=== PATIENT | male | born 1955 | race Caucasian/White ===

== ENCOUNTER 2016-12-30 22:06 | Emergency (ER) | payer OTHER ==
[2016-12-30 22:47] LABS: BASOPHILS 0.2 %; BASOPHILS ABSOLUTE 0.02 10/3/uL (0.0-0.16); EOSINOPHILS 0.6 %; EOSINOPHILS ABSOLUTE 0.07 10/3/uL (0.0-0.53); HEMATOCRIT 43.2 % (40.0-51.0); HEMOGLOBIN 14.9 g/dL (13.6-17.8); IMMATURE GRANULOCYTES 0.1 %; IMMATURE GRANULOCYTES ABSOLUTE 0.01 10/3/uL (0.0-0.11); LYMPHOCYTES 3.1 %; LYMPHOCYTES ABSOLUTE 0.35 10/3/uL (0.67-4.30); MEAN CORPUS HGB CONC 34.5 g/dL (32.0-36.0); MEAN CORPUSCULAR HEMOGLOB 30.4 pg (26.0-34.0); MEAN CORPUSCULAR VOLUME 88.2 fL (80-100); MEAN PLATELET VOLUME 10.8 fL (9.2-13.0); MONOCYTES 3.3 %; MONOCYTES ABSOLUTE 0.38 10/3/uL (0.21-1.20); NEUTROPHILS 92.7 %; NEUTROPHILS ABSOLUTE 10.55 10/3/uL (2.02-8.40); PLATELET COUNT 166 10/3/uL (150-400); RBC DISTRIBUTION WIDTH 12.3 % (12.0-16.0); WHITE BLOOD CELLS 11.4 10/3/uL (4.5-10.5)
[2016-12-30 22:48] LABS: MANUAL DIFF NO %
[2016-12-30 22:56] LABS: ASCORBIC ACID (UR NOT ORDER) NEG (NEG); BILIRUBIN, URINE NEGATIVE (NEG); ER URINALYSIS TAT 0 Hrs 11 Mins; KETONE, URINE TRACE MG/DL (NEG); LEUKOCYTE ESTERASE(NOT OR SMALL (NEG); NITRITE (URINE) NEG (NEG); WBC (NOT ORDERED) (RFLEX) 12 (0-5)
[2016-12-30 23:02] LABS: A/G RATIO 1.1 (0.7-1.9); ALBUMIN 3.7 G/DL (3.5-5.0); ALKALINE PHOSPHATASE 37 U/L (45-117); BUN (BLOOD UREA NITROGEN) 19 MG/DL (6-23); CALCIUM, SERUM 8.1 MG/DL (8.5-10.4); CHLORIDE, SERUM 105 MMOL/L (96-112); CO2 (CARBON DIOXIDE) 24 MMOL/L (24-34); CREATININE 1.19 MG/DL (0.70-1.30); GFR AFRICAN AMERICAN 75 ML/MIN (>=60); GFR NON AFRICAN AMERICAN 65 ML/MIN (>=60); GLOBULIN 3.3 G/DL (2.5-4.1); GLUCOSE, SERUM 123 MG/DL (60-99); POTASSIUM, SERUM 3.5 MMOL/L (3.5-5.3); SGOT(AST) 17 U/L (5-40); SGPT(ALT) 27 U/L (5-65); SODIUM, SERUM 139 MMOL/L (135-148); TOTAL BILIRUBIN 0.9 MG/DL (0-1.2)
[2016-12-31] MEDS ORDERED: KLONO5 PO (17:59)
[2016-12-31] MEDS ORDERED: TUMSROLL PO (18:00)
[2016-12-31] MEDS ORDERED: PRILO PO (18:00)
[2016-12-31] MEDS ORDERED: CELEXA40 MG PO (18:00)
[2016-12-31] MEDS ORDERED: KLONO2 PO (18:00)
[2016-12-31] MEDS ORDERED: OMNICEF300 PO (18:01)
[2016-12-31] MEDS ORDERED: ACET500CAP PO (18:02)
[2016-12-31] MEDS ORDERED: LEVAQUIN5T PO (18:02)
[2016-12-31] MEDS ORDERED: ADVIL PO (18:03)
[2016-12-31] MEDS ORDERED: EXCEDRIN EXTRA1 EACH PO (18:04)
== END 2016-12-31 03:14 | disposition home or self-care (01) ==
LOC: ER 22:06
PROVIDERS: Emergency Medicine
DX: R50.9 Fever, unspecified (principal); E11.9 Type 2 diabetes mellitus without complications
CPT/HCPCS: 71020; 80053; 81001; 85025; 87040; 87077; 87086; 87150; 87186; 99284

== ENCOUNTER 2016-12-31 15:55 | Inpatient (IN) | payer OTHER ==
--- NOTE | ~2016-12-31 | DS ---
Discharge Summary [facility] [address] [place]. [address] NAME: JOHN PAUL ESTRADA : 51 STATUS : DIS IN PAT#: [id number] AGE: 61 ADM/REG DATE : 12/31/16 MR#: [id number] REPORT SERV DATE: 01/11/17 DICTATED BY: LÓPEZ LUNA DATE: 01/11/17 REPORT STATUS : Draft TRANSCRIBED BY: RAMA DATE: 01/11/17 Data Collection from hospitalization DISCHARGE DIAGNOSES: 1. Bacteremia after prostate biopsy. 2. Elevated PSA. 3. Urinary retention. 4. Diet-controlled type 2 diabetes. 5. Gastroesophageal reflux disease. 6. Anxiety with panic attacks. 7. Insomnia. 8. Sleep apnea. CONSULTATIONS: Eugenio Romero M.D. PROCEDURES PERFORMED: None. MEDICATIONS: Tylenol caplet 500 mg daily as needed, Excedrin extra-strength one tablet daily as needed, Tums 1000 mg in the evening and at bedtime as needed, Omnicef 300 mg twice a day for 10 days, Celexa 40 mg at bedtime, Klonopin 0.25 mg daily as needed and 2 mg at bedtime, Advil 200 mg daily as needed, Levaquin 500 mg daily for 10 days, and Prilosec 20 mg at bedtime. CONDITION AT DISCHARGE: Stable. DISPOSITION: The patient was discharged home on a diabetic diet with activities as instructed. He would follow up with me one week following discharge. HOSPITAL COURSE: This is a 61-year-old man who had undergone a prostate biopsy for elevated PSA of just over 5 on Wednesday prior to this admission. He had a fever of 100.4 at home on 12/30/2016. He presented to the emergency room at [facility]. At that time, blood and urine cultures were obtained. His white blood cell count was within normal limits. His vital signs were good. He was then sent home on an extension of this Levaquin and Omnicef. The following day, one of his blood cultures came back positive, so the emergency room called him and told him to come back to the hospital for admission. He was started on IV cefepime for broad-spectrum coverage. He was admitted to the hospital at this time for further evaluation and treatment. Upon admission, overnight his maximum temperature was 100.7. He was afebrile the following morning and said he was feeling better. White blood cell count was normal. He continued to deny any difficulty passing his urine or any blood in his urine or any difficulty or pain passing his bowels or any perineal pain or discomfort. Broad-spectrum antibiotics were continued. DVT prophylaxis was going to be prescribed. On 01/02/2017, antibiotics were continued. White blood cell count was 10.7. Over the next couple of days, he said he begin to feel better. He had no fevers or chills. He was seen in consultation by Dr. Eugenio Romero for evaluation and treatment of gram-negative sepsis. He had been found to have E. coli that was ESBL on cultures. He had been started on Septra and meropenem. Since beginning these, the rigors had stopped and he generally felt better at this time. He was Discharge Summary [address] [place]. [address] NAME: JOHN PAUL ESTRADA : 51 STATUS : DIS IN PAT#: [id number] AGE: 61 ADM/REG DATE : 12/31/16 MR#: [id number] REPORT SERV DATE: 01/11/17 DICTATED BY: LÓPEZ LUNA DATE: 01/11/17 REPORT STATUS : Draft TRANSCRIBED BY: MODL DATE: 01/11/17 not having nausea, vomiting, or headache. He could urinate without difficulty. White count had decreased to 6.1. Creatinine level was 1.01. He was felt to have a genitourinary infection stemming from prostate biopsy and now with associated sepsis due to ESBL Escherichia coli. He was going to be changed to amikacin to give a more narrow spectrum coverage and treat him the rest of this today and the following day with that. He could possibly be sent home on oral Septra to complete his course. Discharge planning was performed. On 01/04/2017, he seemed to be feeling better. Followup blood cultures were negative. His urine was clear. He was afebrile. Discharge instructions were given. Due to his improved and stable condition, he was discharged home with the above-stated instructions. Information collected by: Torrie Last I submit the above information as my discharge summary. LORIN/RAMA López Luna M.D. / [id number] CC: America Meyer M.D. Mark Anderson, M.D.
--- NOTE | ~2016-12-31 | CN ---
Consultation Report [facility] [address] [place]. [address] NAME: JOHN PAUL ESTRADA : 51 STATUS : ADM IN [facility]#: [id number] AGE: 61 ADM/REG DATE : 12/31/16 MR#: [id number] REPORT SERV DATE: 01/03/17 DICTATED BY: LUIS GAGE DATE: 01/03/17 REPORT STATUS : Draft TRANSCRIBED BY: MODL DATE: 01/03/17 INFECTIOUS DISEASE CONSULT DATE OF CONSULTATION: REASON FOR EVALUATION: Evaluation and treatment of gram-negative sepsis. HISTORY OF PRESENT ILLNESS: The patient is a 61-year-old male, who has a history of gastroesophageal reflux disease, obstructive sleep apnea, and diabetes. He had a recently elevated PSA and underwent a transrectal prostate biopsy on 12/29/[address] Walker. The next day, he developed fever and then violent shaking chills. He came here to the emergency room and was evaluated. He appeared to be fairly nontoxic when he arrived. He had a white count of 11.4 and urine with 75 white cells. He had cultures taken and was sent out on Levaquin and Omnicef but the next day, he was called back with reports that his blood is growing gram-negative rods. He came in, urine and blood were cultured, and he was started on cefepime, but the culture came back positive for an E coli that was ESBL. Has been started yesterday on , meropenem, and since has happened, the rigors have stopped and he generally feels better today. He is not having nausea or vomiting. No headache. He is able to urinate without difficulty. PAST MEDICAL HISTORY: Otherwise unremarkable. MEDICATIONS: As mentioned above. ALLERGIES: HE HAS NO KNOWN ANTIMICROBIAL ALLERGIES. SOCIAL HISTORY: He is . 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 Nonsmoker. No history of alcohol or substance abuse. FAMILY HISTORY: Noncontributory. PHYSICAL EXAMINATION: GENERAL: A nontoxic adult, male, in no acute distress. He is alert and oriented x3. VITAL SIGNS: His temperature at present, 98.7 with a pulse of 59, respirations 14, blood pressure 120/60. His weight is 90 kg. HEENT: Sclerae clear. No oropharyngeal lesion. NECK: Supple. LUNGS: Clear. HEART: Regular rate and rhythm. ABDOMEN: Soft, nontender. Positive bowel sounds. EXTREMITIES: Without clubbing, cyanosis, or edema. No swollen, red, or hot joints. No skin lesions or rashes noted. Consultation Report [place] [address] [place]. [address] NAME: JOHN PAUL ESTRADA : 51 STATUS : ADM IN PAT#: [id number] AGE: 61 ADM/REG DATE : 12/31/16 MR#: [id number] REPORT SERV DATE: 01/03/17 DICTATED BY: LUIS GAGE DATE: 01/03/17 REPORT STATUS : Draft TRANSCRIBED BY: RAMA DATE: 01/03/17 LABORATORY DATA: His white count 11.4 when he came in and is 6.1 today, hematocrit 37.9, platelets 128, unremarkable differential, no white count. His BUN and creatinine 13 and 1.01. IMPRESSION: Genitourinary infection stemming from prostate biopsy and now with associated sepsis due to ESBL Escherichia coli. RECOMMENDATIONS: We will change to amikacin to give a more narrow spectrum coverage and treat today and tomorrow with that, and can possibly send him home tomorrow on oral Septra to complete his course. Finally, I will follow the patient with you. I appreciate very much your consulting on this patient. ROSANGELA Luis Gage M.D. / [id number] CC: America Meyer M.D.
--- NOTE | ~2016-12-31 | HP ---
History And Physical [place] [id number] [facility] [place]. [address] NAME: JOHN PAUL ESTRADA : 51 STATUS : ADM IN [facility]#: [id number] AGE: 61 ADM/REG DATE : 12/31/16 MR#: [id number] REPORT SERV DATE: 01/01/17 DICTATED BY: HUAN WHITT DATE: 01/01/17 REPORT STATUS : Draft TRANSCRIBED BY: RAMA DATE: 01/01/17 DATE OF ADMISSION: 12/31/2016 I am seeing this patient for Dr. Walker in his absence. ADMITTING DIAGNOSIS: Bacteremia and fever after prostate biopsy. CHIEF COMPLAINT: "They told me there is gross bacteria in my blood and I have a fever." HISTORY: This is a 61-year-old gentleman who had a prostate biopsy for an elevated PSA of just over [address] Walker in the office. He ran a fever of 100.4 at home on 12/30/2016 and presented to the emergency room at [facility]. At that time, he had blood and urine culture sent. His white blood cell count was within normal limits, and his vital signs were good. He was then sent home on an extension of his Levaquin and Omnicef. The next afternoon, one of his blood cultures came back positive, so the emergency room called him and told him to come back to the hospital for admission. As Dr. Walker was out of town, I was contacted on the evening of 12/31/2016 for admission orders. I elected to place him on IV cefepime for broad-spectrum coverage. Overnight, his maximum temperature was 100.7, but he is afebrile this morning. He states he is feeling better today. His white blood cell count is still normal. He continues to deny any difficulty passing his urine, any blood in his urine, any difficulty or pain passing his bowels or any perineal pain or discomfort. He denies any abdominal pain, nausea, or vomiting. He is tolerating his diabetic diet. PAST MEDICAL HISTORY: Gastroesophageal reflux disease; anxiety with panic attacks; elevated PSA; occasional headaches; insomnia; sleep apnea, requiring CPAP; and diet-controlled type 2 diabetes. PAST SURGICAL HISTORY: Left foot surgery and prostate biopsy in the office. ALLERGIES: NO KNOWN DRUG ALLERGIES. MEDICATIONS AT HOME: Tylenol as needed, Excedrin as needed, and Tums as needed. He was on Omnicef and Levaquin on admission. Celexa, Klonopin 0.5 mg as needed and 2 mg at bedtime, Advil as needed, and Prilosec 20 mg at bedtime. SOCIAL HISTORY: He is . Denies any alcohol or tobacco use. REVIEW OF SYSTEMS: GENERAL: He was having fevers. NEUROLOGIC: Denies symptoms. LUNGS: Denies symptoms. HEART: Denies symptoms. GI: As above. : As above. MUSCULOSKELETAL: Denies symptoms. History And Physical [address] [place]. [address] NAME: JOHN PAUL ESTRADA : 51 STATUS : ADM IN [facility]#: [id number] AGE: 61 ADM/REG DATE : 12/31/16 MR#: [id number] REPORT SERV DATE: 01/01/17 DICTATED BY: HUAN WHITT DATE: 01/01/17 REPORT STATUS : Draft TRANSCRIBED BY: RAMA DATE: 01/01/17 PHYSICAL EXAMINATION: VITAL SIGNS: Maximum temperature overnight was 100.7, temperature this morning is 98.2; blood pressure 107/57; and pulse of 66. He has had 1780 mL in and 1000 mL out. GENERAL: He is in no acute distress. NEUROLOGIC: Alert and oriented x3. PSYCHIATRIC: Appropriate. HEENT: Facial features symmetric. Eyes, sclerae are anicteric. NECK: Supple. LUNGS: Equal inspiratory effort bilaterally. CARDIOVASCULAR: No lower extremity edema noted. ABDOMEN: Soft, nontender, and nondistended. Bladder is not palpable. : Reveals normal circumcised phallus. Bilateral descended testes without masses, which are nontender. Epididymides are also nontender. Prostate exam reveals normal sphincter tone. His prostate is nontender and it is not boggy, and there is no fluctuance. LABORATORY STUDIES: Today, white count of 10.7, hemoglobin 13.6, hematocrit 38.8, and platelets 125. His lactate yesterday was 1.0. Chemistries: Sodium 141, potassium 3.4, chloride 108, CO2 of 23, BUN of 15, creatinine of 1.16, and glucose of 146. Urinalysis on admission showed moderate leukocyte esterase, negative for nitrites, greater than 108 red blood cells, greater than 75 white blood cells, and no bacteria. PT is 16.3, INR of 1.3, and PTT of 35.5. Blood culture sent on 12/30/2016 is growing gram-negative bacilli. IMPRESSION: Bacteremia, status post prostate biopsy with fever. PLAN: 1. Continue broad-spectrum antibiotics. 2. Await blood culture results so the oral antibiotics can be prescribed. 3. We will prescribe DVT prophylaxis. 4. Dr. Silva is covering this weekend. SHERRY/RAMA Huan Whitt M.D. / [id number] CC: America Meyer M.D.
[2016-12-31 16:21] LABS: BASOPHILS 0.1 %; BASOPHILS ABSOLUTE 0.01 10/3/uL (0.0-0.16); EOSINOPHILS 0.6 %; EOSINOPHILS ABSOLUTE 0.06 10/3/uL (0.0-0.53); HEMATOCRIT 41.3 % (40.0-51.0); HEMOGLOBIN 14.5 g/dL (13.6-17.8); IMMATURE GRANULOCYTES 0.2 %; IMMATURE GRANULOCYTES ABSOLUTE 0.02 10/3/uL (0.0-0.11); LYMPHOCYTES 4.5 %; LYMPHOCYTES ABSOLUTE 0.48 10/3/uL (0.67-4.30); MEAN CORPUS HGB CONC 35.1 g/dL (32.0-36.0); MEAN CORPUSCULAR HEMOGLOB 31.6 pg (26.0-34.0); MEAN PLATELET VOLUME 11.1 fL (9.2-13.0); MONOCYTES 3.7 %; MONOCYTES ABSOLUTE 0.39 10/3/uL (0.21-1.20); NEUTROPHILS 90.9 %; NEUTROPHILS ABSOLUTE 9.59 10/3/uL (2.02-8.40); PLATELET COUNT 131 10/3/uL (150-400); RBC DISTRIBUTION WIDTH 12.3 % (12.0-16.0); RED CELL COUNT 4.59 10/6/uL (4.7-6.1); WHITE BLOOD CELLS 10.6 10/3/uL (4.5-10.5)
[2016-12-31 16:22] LABS: MANUAL DIFF NO %
[2016-12-31 16:25] LABS: ASCORBIC ACID (UR NOT ORDER) NEG (NEG); BILIRUBIN, URINE NEGATIVE (NEG); ER URINALYSIS TAT 0 Hrs 10 Mins; KETONE, URINE TRACE MG/DL (NEG); LEUKOCYTE ESTERASE(NOT OR MOD (NEG); NITRITE (URINE) NEG (NEG); WBC (NOT ORDERED) (RFLEX) 75 (0-5)
[2016-12-31 16:30] LABS: INTERNATIONAL NORMAL RATI 1.3 UNITS (-); PARTIAL THROMBO TIME 35.5 SEC (22.5-37.2); PROTIME (NOT ORD) 16.3 SEC (12.0-14.5)
[2016-12-31 16:36] LABS: A/G RATIO 1.1 (0.7-1.9); ALBUMIN 3.6 G/DL (3.5-5.0); ALKALINE PHOSPHATASE 39 U/L (45-117); BUN (BLOOD UREA NITROGEN) 17 MG/DL (6-23); CALCIUM, SERUM 8.2 MG/DL (8.5-10.4); CHLORIDE, SERUM 104 MMOL/L (96-112); CO2 (CARBON DIOXIDE) 26 MMOL/L (24-34); CREATININE 1.17 MG/DL (0.70-1.30); GFR AFRICAN AMERICAN 76 ML/MIN (>=60); GFR NON AFRICAN AMERICAN 66 ML/MIN (>=60); GLOBULIN 3.4 G/DL (2.5-4.1); GLUCOSE, SERUM 132 MG/DL (60-99); POTASSIUM, SERUM 3.7 MMOL/L (3.5-5.3); SGOT(AST) 20 U/L (5-40); SGPT(ALT) 26 U/L (5-65); SODIUM, SERUM 139 MMOL/L (135-148); TOTAL BILIRUBIN 1.2 MG/DL (0-1.2)
[2016-12-31] MEDS ORDERED: KLONO5 PO (17:59)
[2016-12-31] MEDS ORDERED: PRILO PO (18:00)
[2016-12-31] MEDS ORDERED: TUMSROLL PO (18:00)
[2016-12-31] MEDS ORDERED: CELEXA40 MG PO (18:00)
[2016-12-31] MEDS ORDERED: KLONO2 PO (18:00)
[2016-12-31] MEDS ORDERED: OMNICEF300 PO (18:01)
[2016-12-31] MEDS ORDERED: LEVAQUIN5T PO (18:02)
[2016-12-31] MEDS ORDERED: ACET500CAP PO (18:02)
[2016-12-31] MEDS ORDERED: ADVIL PO (18:03)
[2016-12-31] MEDS ORDERED: EXCEDRIN EXTRA1 EACH PO (18:04)
[2017-01-01 06:04] LABS: BASOPHILS 0.2 %; BASOPHILS ABSOLUTE 0.02 10/3/uL (0.0-0.16); EOSINOPHILS 0.4 %; EOSINOPHILS ABSOLUTE 0.04 10/3/uL (0.0-0.53); HEMATOCRIT 38.8 % (40.0-51.0); HEMOGLOBIN 13.6 g/dL (13.6-17.8); IMMATURE GRANULOCYTES 0.1 %; IMMATURE GRANULOCYTES ABSOLUTE 0.01 10/3/uL (0.0-0.11); LYMPHOCYTES 7.5 %; MEAN CORPUS HGB CONC 35.1 g/dL (32.0-36.0); MEAN CORPUSCULAR HEMOGLOB 31.8 pg (26.0-34.0); MEAN CORPUSCULAR VOLUME 90.7 fL (80-100); MEAN PLATELET VOLUME 11.6 fL (9.2-13.0); MONOCYTES 6.2 %; MONOCYTES ABSOLUTE 0.66 10/3/uL (0.21-1.20); NEUTROPHILS 85.6 %; PLATELET COUNT 125 10/3/uL (150-400); RBC DISTRIBUTION WIDTH 12.5 % (12.0-16.0); RED CELL COUNT 4.28 10/6/uL (4.7-6.1); WHITE BLOOD CELLS 10.7 10/3/uL (4.5-10.5)
[2017-01-01 06:13] LABS: MANUAL DIFF NO %
[2017-01-01 06:40] LABS: BUN (BLOOD UREA NITROGEN) 15 MG/DL (6-23); CALCIUM, SERUM 7.7 MG/DL (8.5-10.4); CHLORIDE, SERUM 108 MMOL/L (96-112); CO2 (CARBON DIOXIDE) 23 MMOL/L (24-34); CREATININE 1.16 MG/DL (0.70-1.30); GFR AFRICAN AMERICAN 77 ML/MIN (>=60); GFR NON AFRICAN AMERICAN 67 ML/MIN (>=60); GLUCOSE, SERUM 146 MG/DL (60-99); POTASSIUM, SERUM 3.4 MMOL/L (3.5-5.3); SODIUM, SERUM 141 MMOL/L (135-148)
[2017-01-02 07:30] LABS: BASOPHILS 0.2 %; BASOPHILS ABSOLUTE 0.02 10/3/uL (0.0-0.16); EOSINOPHILS 0.7 %; EOSINOPHILS ABSOLUTE 0.06 10/3/uL (0.0-0.53); HEMATOCRIT 37.7 % (40.0-51.0); HEMOGLOBIN 12.9 g/dL (13.6-17.8); IMMATURE GRANULOCYTES 0.1 %; IMMATURE GRANULOCYTES ABSOLUTE 0.01 10/3/uL (0.0-0.11); MEAN CORPUS HGB CONC 34.2 g/dL (32.0-36.0); MEAN CORPUSCULAR VOLUME 90.6 fL (80-100); MEAN PLATELET VOLUME 11.5 fL (9.2-13.0); MONOCYTES 8.5 %; MONOCYTES ABSOLUTE 0.68 10/3/uL (0.21-1.20); NEUTROPHILS 80.5 %; NEUTROPHILS ABSOLUTE 6.44 10/3/uL (2.02-8.40); PLATELET COUNT 105 10/3/uL (150-400); RBC DISTRIBUTION WIDTH 12.7 % (12.0-16.0); RED CELL COUNT 4.16 10/6/uL (4.7-6.1)
[2017-01-02 07:32] LABS: MANUAL DIFF NO %
[2017-01-02 07:41] LABS: BUN (BLOOD UREA NITROGEN) 13 MG/DL (6-23); CALCIUM, SERUM 7.5 MG/DL (8.5-10.4); CHLORIDE, SERUM 108 MMOL/L (96-112); CO2 (CARBON DIOXIDE) 22 MMOL/L (24-34); CREATININE 1.01 MG/DL (0.70-1.30); GFR AFRICAN AMERICAN 91 ML/MIN (>=60); GFR NON AFRICAN AMERICAN 79 ML/MIN (>=60); GLUCOSE, SERUM 113 MG/DL (60-99); POTASSIUM, SERUM 3.3 MMOL/L (3.5-5.3); SODIUM, SERUM 140 MMOL/L (135-148)
[2017-01-03 12:56] LABS: BASOPHILS 0.2 %; BASOPHILS ABSOLUTE 0.01 10/3/uL (0.0-0.16); EOSINOPHILS 2.9 %; EOSINOPHILS ABSOLUTE 0.18 10/3/uL (0.0-0.53); HEMATOCRIT 37.9 % (40.0-51.0); IMMATURE GRANULOCYTES 0.3 %; IMMATURE GRANULOCYTES ABSOLUTE 0.02 10/3/uL (0.0-0.11); LYMPHOCYTES 15.2 %; LYMPHOCYTES ABSOLUTE 0.93 10/3/uL (0.67-4.30); MEAN CORPUS HGB CONC 34.3 g/dL (32.0-36.0); MEAN CORPUSCULAR HEMOGLOB 31.1 pg (26.0-34.0); MEAN CORPUSCULAR VOLUME 90.7 fL (80-100); MEAN PLATELET VOLUME 11.2 fL (9.2-13.0); MONOCYTES 13.7 %; MONOCYTES ABSOLUTE 0.84 10/3/uL (0.21-1.20); NEUTROPHILS 67.7 %; NEUTROPHILS ABSOLUTE 4.13 10/3/uL (2.02-8.40); PLATELET COUNT 128 10/3/uL (150-400); RBC DISTRIBUTION WIDTH 12.8 % (12.0-16.0); RED CELL COUNT 4.18 10/6/uL (4.7-6.1); WHITE BLOOD CELLS 6.1 10/3/uL (4.5-10.5)
[2017-01-03 12:57] LABS: MANUAL DIFF NO %
== END 2017-01-04 17:54 | disposition home or self-care (01) | DRG 862 ==
LOC: ER 15:55 → 4SO 19:52
PROVIDERS: Emergency Medicine; Urology
DX: T81.4XXA Infection following a procedure, initial encounter (principal); A41.51 Sepsis due to Escherichia coli [E. coli]; K21.9 Gastro-esophageal reflux disease without esophagitis; F41.0 Panic disorder [episodic paroxysmal anxiety]; Y84.8 Other medical procedures as the cause of abnormal reaction of the patient, or of later complication, without mention of misadventure at the time of the procedure; G47.00 Insomnia, unspecified; G47.33 Obstructive sleep apnea (adult) (pediatric); E11.9 Type 2 diabetes mellitus without complications; R33.8 Other retention of urine; R97.20 Elevated prostate specific antigen [PSA]
CPT/HCPCS: 71020; 80048; 80053; 81001; 82962; 83605; 83690; 84132; 85025; 85610; 85730; 87040; 87077; 87086; 87186; 93005; 99285; A9270-GY; J0278; J0692; J2185

== ENCOUNTER 2017-01-24 09:13 | Inpatient (IN) | payer OTHER ==
--- NOTE | ~2017-01-24 | DS ---
Discharge Summary [facility] [address] [place]. [address] NAME: JOHN PAUL ESTRADA : 51 STATUS : DIS IN PAT#: [id number] AGE: 61 ADM/REG DATE : 01/24/17 MR#: [id number] REPORT SERV DATE: 03/01/17 DICTATED BY: IVY FLORES II DATE: 02/28/17 REPORT STATUS : Draft TRANSCRIBED BY: MODL DATE: 02/28/17 ADMISSION DATE: 01/24/2017 DISCHARGE DATE: 01/28/2017 DISCHARGE DIAGNOSES: 1. Acute cystitis, with also probable prostatitis, with history of extended-spectrum beta- lactamases Escherichia coli. 2. Sepsis. 3. Diabetes mellitus type 2. 4. Obstructive sleep apnea. CONSULTS: Dr. Walker with Urology and Dr. Alberto with Infectious Disease. BRIEF HISTORY OF PRESENT ILLNESS: The patient is a 61-year-old male, with the above history, who presented to [facility], due to dysuria, frequency, and fever. For detailed history and physical examination, please see Dr. Arrington's note from 01/24/2017. HOSPITAL COURSE: On admission, the patient had a white blood cell count of 16.5. A urinalysis showed 34 white cells, 28 red cells, small leuk esterase, and moderate blood. Given the patient's history of ESBL E. coli, he was started on meropenem. Urine cultures on this admission are actually unremarkable. A CT scan was done, due to concern for possible prostatic abscess. This showed diffuse thickening at the wall of the bladder with inflammation in the adjacent mesentery consistent with cystitis. The prostate gland was also enlarged with in-margin contrast enhancement. Dr. Walker was consulted and evaluated the patient, and thought that CT scan findings were concerning for prostatitis as well. Dr. Alberto recommended ertapenem IV for 10 days. The patient's white count actually came down. He is doing well. Dysuria improved and was discharged home with home health on IV antibiotics. He will follow with Dr. Walker in two weeks. DISCHARGE MEDICATIONS: 1. Tylenol 500 mg p.o. daily p.r.n. 2. Excedrin p.r.n. 3. Tums p.r.n. 4. Celexa 40 mg p.o. at bedtime. 5. Klonopin 0.25 mg p.o. daily p.r.n. 6. Klonopin 2 mg p.o. at bedtime p.r.n. 7. Ibuprofen 200 mg p.o. daily p.r.n. 8. Prilosec 20 mg p.o. daily. 9. Flomax 0.4 mg p.o. at bedtime. 10.Ertapenem 1 g IV daily for 10 days. DISCHARGE INSTRUCTIONS: The patient will follow up with Dr. Walker in two to three weeks. Discharge Summary [address] [address] NAME: JOHN PAUL ESTRADA : 51 STATUS : DIS IN PAT#: [id number] AGE: 61 ADM/REG DATE : 01/24/17 MR#: [id number] REPORT SERV DATE: 03/01/17 DICTATED BY: IVY FLORES II DATE: 02/28/17 REPORT STATUS : Draft TRANSCRIBED BY: RAMA DATE: 02/28/17 NITA/RAMA Ivy Flores II, MD / [id number] CC: MD Javi Drummond II, M.D.
--- NOTE | ~2017-01-24 | HP ---
History And Physical [place] [id number] [facility] [place]. [address] NAME: JOHN PAUL ESTRADA : 51 STATUS : ADM IN PAT#: [id number] AGE: 61 ADM/REG DATE : 01/24/17 MR#: [id number] REPORT SERV DATE: 01/24/17 DICTATED BY: DANE ARRINGTON DATE: 01/24/17 REPORT STATUS : Draft TRANSCRIBED BY: MODL DATE: 01/24/17 DATE OF ADMISSION: 01/24/2017 CHIEF COMPLAINT: Burning with urination as well as frequency and fever. HISTORY OF PRESENT ILLNESS: This is a 61-year-old male, discharge from the hospital last month for bacteremia with ESBL E. coli. Perviously, he was discharged on 01/04/2017. During that hospitalization, he was seen by Dr. Eugenio Romero. He completed antibiotics at home. He had this bacteremia after a prostate biopsy. He said he was told to come back to the ER if he felt bad again. Yesterday, he felt okay, then in the evening he noted that he was having pain with urination and going to the bathroom a lot. This morning, he had a temperature of 101. Denies any nausea, vomiting, chest pain, shortness of breath. REVIEW OF SYSTEMS: Full review of systems is obtained and is negative with the exception of above HPI. PAST MEDICAL HISTORY: 1. GERD, anxiety with panic attacks, history of elevated PSA with recent prostate biopsy. 2. History of MK requiring CPAP and diet-controlled diabetes. ALLERGIES: NO KNOWN DRUG ALLERGIES. SOCIAL HISTORY: He is . Denies alcohol abuse or tobacco use. HOME MEDICATIONS: Tylenol p.r.n., Excedrin p.r.n., Tums p.r.n., Celexa 40 mg at bedtime, Klonopin 0.25 daily p.r.n., Klonopin 2 mg at bedtime, Advil p.r.n., Prilosec 20 at bedtime, and Flomax 0.4 at bedtime. FAMILY HISTORY: Heart disease. PHYSICAL EXAMINATION: VITAL SIGNS: Temperature 99.3, pulse 87, respiratory rate 16, blood pressure 133/63, saturating 98% on room air. GENERAL: This is a well-developed, well-nourished male, who appears stated. He is in no acute distress. HEENT: Extraocular muscles are intact. Sclerae anicteric. Mucous membranes are moist. NECK: Supple. LUNGS: Clear to auscultation bilaterally with normal respiratory effort. Symmetric expansion. No wheezes, rales, or rhonchi. CARDIAC: Regular rate and rhythm with no appreciable murmur. ABDOMEN: Soft, nontender, nondistended. No palpable masses. EXTREMITIES: Lower extremities are warm and well perfused with no edema. NEURO: Cranial nerves II through XII are grossly intact. Face is symmetric. Tongue is midline. LABORATORY DATA: Done in the emergency room. CBC with white blood cell count 16.5, History And Physical [address] [address] NAME: JOHN PAUL ESTRADA : 51 STATUS : ADM IN [facility]#: [id number] AGE: 61 ADM/REG DATE : 01/24/17 MR#: [id number] REPORT SERV DATE: 01/24/17 DICTATED BY: DANE ARRINGTON DATE: 01/24/17 REPORT STATUS : Draft TRANSCRIBED BY: RAMA DATE: 01/24/17 hemoglobin 14.6, platelet count 175. BMP grossly unremarkable. ASSESSMENT AND PLAN: 61-year-old male with recent extended spectrum beta-lactamases Escherichia coli bacteremia after prostate biopsy presenting with urinary tract infection and early sepsis. 1. Urinary tract infection with sepsis. The patient will be treated with meropenem given previous culture results. We will follow cultures including blood in urine and adjust antibiotics as appropriate. In the interim, he will be admitted to the hospital and monitored. 2. Dysuria, we will start him on Pyridium. 3. Obstructive sleep apnea, continue home CPAP regimen. 4. History of anxiety and panic attacks, continue home regimen. 5. Diet-controlled diabetes. We will have him here monitored on sliding scale insulin given infection. 6. Deep venous thrombosis prophylaxis will be with enoxaparin. 7. Code status is full. DNK/MODL Dane Arrington MD / [id number] CC: MD Saran De La Rosa J. Scott
--- NOTE | ~2017-01-24 | CN ---
Consultation Report [facility] [address] [place]. [address] NAME: JOHN PAUL PADILLA : 51 STATUS : ADM IN [facility]#: [id number] AGE: 61 ADM/REG DATE : 01/24/17 MR#: [id number] REPORT SERV DATE: 01/27/17 DICTATED BY: LÓPEZ LUNA DATE: 01/27/17 REPORT STATUS : Draft TRANSCRIBED BY: RAMA DATE: 01/27/17 CONSULTATION DATE OF CONSULTATION: 01/27/2017 REASON FOR CONSULTATION: Febrile urinary tract infection, probable acute prostatitis. PERTINENT HISTORY AND PHYSICAL EXAMINATION: Mr. Padilla is a 61-year-old gentleman, who underwent a transrectal ultrasound-guided needle biopsy of the prostate approximately a month ago as an outpatient. This was followed by admission to [address] [place] [address] with a febrile urinary tract infection. He was seen at that time by Dr. Romero in Infectious Disease and was treated according to sensitivity. He was dismissed on Bactrim. The patient did very well for a couple of weeks and then began having fever and chills again and presented to the emergency room at [facility] and was readmitted with a white count of 18,800. He was started on meropenem for a presumed ESBL E coli. He responded quickly to treatment with the white count going from 18,800 to 12,000. The patient was on the day of my consultation, which is 01/27/2017, was voiding well with no complaints of pain. His urine culture and blood cultures were both negative, however. A CT scan was performed, which revealed an enlarged prostate with findings consistent with prostatitis. There was no abscess noted. These films were reviewed with Dr. Devin Johnson in the Radiology Department. The patient had a postvoid residual on a scan of 112 mL after 300 voided. Plans are for him to be discharged later today with a PICC line on IV ertapenem under the direction of Dr. Romero. I deferred doing any digital manipulation of the prostate for fear of getting the patient bacteremic and will follow him in the office. IMPRESSION: Febrile urinary infection/prostatitis post biopsy. PLAN: Discharge home on IV antibiotics as above. We will see in the office. /RAMA López Luna M.D. / [id number] CC: MD Javi Drummond II, M.D.
[~2017-01-24 09:13] MED LIST: ACET500CAP PO; ADVIL PO; CELEXA40 MG PO; EXCEDRIN EXTRA1 EACH PO; KLONO2 PO; KLONO5 PO; LEVAQUIN5T PO; OMNICEF300 PO; PRILO PO; TUMSROLL PO
[2017-01-24 10:57] LABS: BASOPHILS 0.1 %; BASOPHILS ABSOLUTE 0.02 10/3/uL (0.0-0.16); EOSINOPHILS 0.1 %; EOSINOPHILS ABSOLUTE 0.01 10/3/uL (0.0-0.53); ER CBC TAT 0 Hrs 05 Mins; HEMATOCRIT 41.4 % (40.0-51.0); HEMOGLOBIN 14.6 g/dL (13.6-17.8); IMMATURE GRANULOCYTES 0.2 %; IMMATURE GRANULOCYTES ABSOLUTE 0.04 10/3/uL (0.0-0.11); LYMPHOCYTES 7.5 %; LYMPHOCYTES ABSOLUTE 1.24 10/3/uL (0.67-4.30); MANUAL DIFF NO %; MEAN CORPUS HGB CONC 35.3 g/dL (32.0-36.0); MEAN CORPUSCULAR HEMOGLOB 31.5 pg (26.0-34.0); MEAN CORPUSCULAR VOLUME 89.4 fL (80-100); MEAN PLATELET VOLUME 10.3 fL (9.2-13.0); MONOCYTES 8.2 %; MONOCYTES ABSOLUTE 1.35 10/3/uL (0.21-1.20); NEUTROPHILS 83.9 %; NEUTROPHILS ABSOLUTE 13.85 10/3/uL (2.02-8.40); PLATELET COUNT 175 10/3/uL (150-400); RBC DISTRIBUTION WIDTH 12.3 % (12.0-16.0); RED CELL COUNT 4.63 10/6/uL (4.7-6.1); WHITE BLOOD CELLS 16.5 10/3/uL (4.5-10.5)
[2017-01-24 11:04] LABS: ASCORBIC ACID (UR NOT ORDER) NEG (NEG); BILIRUBIN, URINE NEGATIVE (NEG); ER URINALYSIS TAT 0 Hrs 12 Mins; KETONE, URINE NEGATIVE (NEG); LEUKOCYTE ESTERASE(NOT OR TRACE (NEG); NITRITE (URINE) NEG (NEG); WBC (NOT ORDERED) (RFLEX) 10 (0-5)
[2017-01-24 11:14] LABS: A/G RATIO 0.9 (0.7-1.9); ALBUMIN 3.6 G/DL (3.5-5.0); ALKALINE PHOSPHATASE 39 U/L (45-117); BUN (BLOOD UREA NITROGEN) 13 MG/DL (6-23); CALCIUM, SERUM 8.4 MG/DL (8.5-10.4); CHLORIDE, SERUM 103 MMOL/L (96-112); CO2 (CARBON DIOXIDE) 28 MMOL/L (24-34); GFR AFRICAN AMERICAN 82 ML/MIN (>=60); GFR NON AFRICAN AMERICAN 71 ML/MIN (>=60); GLOBULIN 3.8 G/DL (2.5-4.1); GLUCOSE, SERUM 132 MG/DL (60-99); LACTATE 1.4 MMOL/L (0.3-2.4); POTASSIUM, SERUM 3.9 MMOL/L (3.5-5.3); SGOT(AST) 28 U/L (5-40); SGPT(ALT) 36 U/L (5-65); SODIUM, SERUM 140 MMOL/L (135-148); TOTAL BILIRUBIN 1.1 MG/DL (0-1.2); TOTAL PROTEIN 7.4 G/DL (6.0-8.5)
[2017-01-24] MEDS ORDERED: FLOMAX4 PO (11:49)
[2017-01-24 14:34] LABS: ASCORBIC ACID (UR NOT ORDER) NEG (NEG); BILIRUBIN, URINE NEGATIVE (NEG); KETONE, URINE TRACE MG/DL (NEG); LEUKOCYTE ESTERASE(NOT OR SMALL (NEG); WBC (NOT ORDERED) (RFLEX) 34 (0-5)
[2017-01-25 04:29] LABS: BASOPHILS 0.1 %; BASOPHILS ABSOLUTE 0.02 10/3/uL (0.0-0.16); EOSINOPHILS 0.3 %; EOSINOPHILS ABSOLUTE 0.06 10/3/uL (0.0-0.53); HEMATOCRIT 37.7 % (40.0-51.0); HEMOGLOBIN 13.1 g/dL (13.6-17.8); IMMATURE GRANULOCYTES 0.3 %; IMMATURE GRANULOCYTES ABSOLUTE 0.05 10/3/uL (0.0-0.11); LYMPHOCYTES 9.3 %; LYMPHOCYTES ABSOLUTE 1.75 10/3/uL (0.67-4.30); MEAN CORPUS HGB CONC 34.7 g/dL (32.0-36.0); MEAN CORPUSCULAR HEMOGLOB 31.3 pg (26.0-34.0); MEAN CORPUSCULAR VOLUME 90.2 fL (80-100); MEAN PLATELET VOLUME 10.7 fL (9.2-13.0); MONOCYTES 9.8 %; MONOCYTES ABSOLUTE 1.84 10/3/uL (0.21-1.20); NEUTROPHILS 80.2 %; NEUTROPHILS ABSOLUTE 15.11 10/3/uL (2.02-8.40); PLATELET COUNT 163 10/3/uL (150-400); RBC DISTRIBUTION WIDTH 12.9 % (12.0-16.0); RED CELL COUNT 4.18 10/6/uL (4.7-6.1); WHITE BLOOD CELLS 18.8 10/3/uL (4.5-10.5)
[2017-01-25 04:33] LABS: MANUAL DIFF NO %
[2017-01-25 04:35] LABS: BUN (BLOOD UREA NITROGEN) 14 MG/DL (6-23); CALCIUM, SERUM 8.3 MG/DL (8.5-10.4); CHLORIDE, SERUM 104 MMOL/L (96-112); CO2 (CARBON DIOXIDE) 27 MMOL/L (24-34); CREATININE 1.05 MG/DL (0.70-1.30); GFR AFRICAN AMERICAN 87 ML/MIN (>=60); GFR NON AFRICAN AMERICAN 75 ML/MIN (>=60); GLUCOSE, SERUM 139 MG/DL (60-99); POTASSIUM, SERUM 3.5 MMOL/L (3.5-5.3); SODIUM, SERUM 140 MMOL/L (135-148)
[2017-01-25 12:57] LABS: PROCALCITONIN 0.14 ng/mL (<0.5)
[2017-01-26 03:51] LABS: BASOPHILS 0.2 %; BASOPHILS ABSOLUTE 0.03 10/3/uL (0.0-0.16); EOSINOPHILS 1.5 %; EOSINOPHILS ABSOLUTE 0.19 10/3/uL (0.0-0.53); HEMATOCRIT 36.7 % (40.0-51.0); HEMOGLOBIN 12.6 g/dL (13.6-17.8); IMMATURE GRANULOCYTES 0.2 %; IMMATURE GRANULOCYTES ABSOLUTE 0.03 10/3/uL (0.0-0.11); LYMPHOCYTES 14.9 %; LYMPHOCYTES ABSOLUTE 1.93 10/3/uL (0.67-4.30); MEAN CORPUS HGB CONC 34.3 g/dL (32.0-36.0); MEAN CORPUSCULAR HEMOGLOB 31.3 pg (26.0-34.0); MEAN CORPUSCULAR VOLUME 91.3 fL (80-100); MEAN PLATELET VOLUME 10.5 fL (9.2-13.0); MONOCYTES 8.8 %; MONOCYTES ABSOLUTE 1.14 10/3/uL (0.21-1.20); NEUTROPHILS 74.4 %; NEUTROPHILS ABSOLUTE 9.61 10/3/uL (2.02-8.40); PLATELET COUNT 164 10/3/uL (150-400); RBC DISTRIBUTION WIDTH 12.7 % (12.0-16.0); RED CELL COUNT 4.02 10/6/uL (4.7-6.1); WHITE BLOOD CELLS 12.9 10/3/uL (4.5-10.5)
[2017-01-26 03:52] LABS: MANUAL DIFF NO %
[2017-01-26 04:05] LABS: BUN (BLOOD UREA NITROGEN) 12 MG/DL (6-23); CALCIUM, SERUM 8.1 MG/DL (8.5-10.4); CHLORIDE, SERUM 107 MMOL/L (96-112); CO2 (CARBON DIOXIDE) 27 MMOL/L (24-34); CREATININE 0.93 MG/DL (0.70-1.30); GFR AFRICAN AMERICAN 101 ML/MIN (>=60); GFR NON AFRICAN AMERICAN 87 ML/MIN (>=60); POTASSIUM, SERUM 3.7 MMOL/L (3.5-5.3); SODIUM, SERUM 141 MMOL/L (135-148)
[2017-01-26 04:06] LABS: GLUCOSE, SERUM 91 MG/DL (60-99)
[2017-01-28] MEDS ORDERED: ERTAPENEM IV (12:31)
== END 2017-01-28 16:23 | disposition home health service (06) | DRG 862 ==
LOC: ER 09:13 → 4EA 11:46
PROVIDERS: Emergency Medicine; Internal Medicine
PROC: 02HV33Z Insertion of Infusion Device into Superior Vena Cava, Percutaneous Approach (ICD-10-PCS; principal; 2017-01-27)
PROC: 4A02X4A Measurement of Cardiac Electrical Activity, Guidance, External Approach (ICD-10-PCS; 2017-01-27)
DX: T81.4XXA Infection following a procedure, initial encounter (principal); A41.9 Sepsis, unspecified organism; N39.0 Urinary tract infection, site not specified; N41.0 Acute prostatitis; G47.33 Obstructive sleep apnea (adult) (pediatric); E11.9 Type 2 diabetes mellitus without complications
CPT/HCPCS: 36569; 74177; 80048; 80053; 81001; 82962; 83605; 83735; 84145; 85025; 87040; 87086; 99285; A9270-GY; C1751; J1335; J2185; Q9967